=== PATIENT | female | born 1945 | race Hispanic/Latino ===

== ENCOUNTER 2017-03-27 09:17 | Emergency (ER) | payer OTHER, MEDICARE, BC ==
[2017-03-27 09:46] VITALS: BP 118/75; PULSE 98; RESP 12; TEMP 98.5; O2SAT 100
[2017-03-27] MEDS ORDERED: Naproxen 500 MG TAB PO STA (09:53)
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
[2017-03-27] MEDS ORDERED: Naproxen 500 MG TAB PO ONE (10:13)
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
== END 2017-03-27 11:25 | disposition home or self-care (01) ==
LOC: H.ER 09:17
DX: S89.91XA Unspecified injury of right lower leg, initial encounter (principal); V43.52XA Car driver injured in collision with other type car in traffic accident, initial encounter; Y92.410 Unspecified street and highway as the place of occurrence of the external cause